=== PATIENT | female | born 1990 | race Caucasian/White ===

== ENCOUNTER 2022-02-13 04:21 | Emergency (ER) | payer MEDICAID ==
[~2022-02-13] VITALS: Ht 177.8 cm; Wt 80.5 kg
[2022-02-13] MEDS ORDERED: SODIUM CHLORIDE 0.9% 1,000 ML IV ONE (07:15)
[2022-02-13] MEDS ORDERED: LORazepam 0.5 MG TAB PO ONE (07:30)
[2022-02-13] MEDS ORDERED: ONDANSETRON ODT 4 MG TAB PO ONE ×2 (07:30→11:00)
[2022-02-13 07:41] LABS: Basophils # (auto) 0.1 10 ^3/uL (0-0.2); Basophils % (auto) 0.8 % (0.0-2.0); Eosinophils # (auto) 0.2 10 ^3/uL (0-0.8); Eosinophils % (auto) 1.9 % (0.0-7.0); Hematocrit 34.7 % (36.0-46.0); Hemoglobin 11.9 g/dL (12.2-16.2); Lymphocytes # (auto) 1.9 10 ^3/uL (0.4-5.4); Lymphocytes % (auto) 23.3 % (10.0-50.0); Mean Corpuscular Hemoglobin 31.8 pg (28.0-32.0); Mean Corpuscular Hgb Conc. 34.4 g/dL (32.0-36.0); Mean Corpuscular Volume 92.5 fL (80.0-100.0); Monocytes # (auto) 0.5 10 ^3/uL (0-1.3); Monocytes % (auto) 5.8 % (0.0-12.0); Neutrophils # (auto) 5.6 10 ^3/uL (1.6-8.6); Neutrophils % (auto) 68.2 % (37.0-80.0); Nucleated Red Blood Cells % 0.1 %; Red Blood Cells 3.75 10^6/uL (4.0-5.20); Red Cell Distribution Width 13.6 % (11.8-14.3); White Blood Cell 8.3 10^3/uL (4.4-10.8)
[2022-02-13 08:08] LABS: Urine Bacteria FEW /hpf (None Seen); Urine Blood 1+ /uL (Negative); Urine Mucus FEW (None Seen); Urine Specific Gravity 1.028 (1.001-1.035); Urine WBC 4 /hpf (0 - 5)
[2022-02-13 08:18] LABS: Albumin 3.9 g/dL (3.4-5.0); Potassium 3.9 mmol/L (3.5-5.1)
[2022-02-13 08:23] LABS: Bilirubin, Total 2.3 mg/dL (0.2-1.0); Total Protein 7.3 g/dL (6.4-8.2)
[2022-02-13 08:28] LABS: Alcohol, Urine < 3.0 mg/dL (0-10); Amphetamine Screen, Urine NEGATIVE (NEGATIVE); Barbiturate Scree,Urine NEGATIVE (NEGATIVE); Benzodiazephine Screen, Urine NEGATIVE (NEGATIVE); Cannabinoid Screen, Urine NEGATIVE (NEGATIVE); Opiate Scree,Urine NEGATIVE (NEGATIVE); Phencyclidine Screen, Urine NEGATIVE (NEGATIVE)
[2022-02-13] MEDS ORDERED: ACETAMINOPHEN 325 MG TAB PO ONE (08:45)
[2022-02-13 09:06] LABS: Cocaine Screen, Urine NEGATIVE (NEGATIVE)
[2022-02-13] MEDS ORDERED: IOHEXOL 300 MG/ML 100ML BOTTLE IJ ONE (09:39)
[2022-02-13] MEDS ORDERED: MORPHINE SULFATE INJ 2 MG/ml SYRG IM ONE (11:00)
[2022-02-13] MEDS ORDERED: ACE3T PO (11:42)
[2022-02-13 11:43] VITALS: BP 143/76
== END 2022-02-13 12:24 | disposition home or self-care (01) ==
LOC: ER 04:21
DX: N83.202 Unspecified ovarian cyst, left side (principal); E86.0 Dehydration; Z20.822 Contact with and (suspected) exposure to COVID-19; Z32.02 Encounter for pregnancy test, result negative
CPT/HCPCS: 36415; 74176; 74177; 76830; 76856; 80053; 80307; 81001; 81025; 84702; 85025; 87426; 87804; 96360; 96372; 99285; J2270; J7030; Q0162; Q9967